=== PATIENT | male | born 1985 | race Caucasian/White ===

== ENCOUNTER 2017-02-13 17:59 | Emergency (ER) | payer OTHER ==
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
--- NOTE | 2017-02-13 18:39 | ED ORDER SUMMARY ---
..... Patient: DARBY WILEY OrderSheet [facility] VisitID: [id number] [place] [address] 31y, M Registration Date/Time: 02/13/2017 ORDER SHEET Weight: 86.1 kg (stated) Allergies: No Known Drug Allergy GENERAL ORDERS: Forearm Left Urgent (18:10 02/13/2017 EKoroleva P.A.-C) (Ack 18:19 Linda) (18:26 RFay) MEDICATION ORDERS: Tdap IM 0.5 mL (NOW, per protocol) (18:10 02/13/2017 EKoroleva P.A.-C) (18:20 LSullivan R.N.) Tylenol PO 650 mg (NOW) (18:10 02/13/2017 EKoroleva P.A.-C) (18:20 LSullivan R.N.) Motrin PO 800 mg (NOW) (18:11 02/13/2017 EKoroleva P.A.-C) (18:20 LSullivan R.N.) Hydrocodone-APAP PO 5/325 mg (NOW, HIGH ALERT MEDICATION) (18:36 02/13/2017 EKoroleva P.A.-C) (18:39 LSullivan R.N.) IV FLUIDS: ORDER SHEET NOTES: [Electronically signed by Belia FarahAReddy-Rey (19:00 02/13/2017)] [Electronically signed by Patti Davis R.N. (19:17 02/13/2017)] [Electronically locked/signed by Patti Davis R.N. (19:17 02/13/2017)]
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
--- NOTE | 2017-02-13 18:39 | ED ORDER SUMMARY ---
..... Patient: DARBY WILEY OrderSheet [facility] VisitID: [id number] [place] [address] 31y, M Registration Date/Time: 02/13/2017 ORDER SHEET Weight: 86.1 kg (stated) Allergies: No Known Drug Allergy GENERAL ORDERS: Forearm Left Urgent (18:10 02/13/2017 EKoroleva P.A.-C) (Ack 18:19 Linda) (18:26 RFay) MEDICATION ORDERS: Tdap IM 0.5 mL (NOW, per protocol) (18:10 02/13/2017 EKoroleva P.A.-C) (18:20 LSullivan R.N.) Tylenol PO 650 mg (NOW) (18:10 02/13/2017 EKoroleva P.A.-C) (18:20 LSullivan R.N.) Motrin PO 800 mg (NOW) (18:11 02/13/2017 EKoroleva P.A.-C) (18:20 LSullivan R.N.) Hydrocodone-APAP PO 5/325 mg (NOW, HIGH ALERT MEDICATION) (18:36 02/13/2017 EKoroleva P.A.-C) (18:39 LSullivan R.N.) IV FLUIDS: ORDER SHEET NOTES: [Electronically signed by Belia FarahAReddy-Rey (19:00 02/13/2017)] [Electronically signed by Patti Davis R.N. (19:17 02/13/2017)] [Electronically locked/signed by Patti Davis R.N. (19:17 02/13/2017)]
--- NOTE | 2017-02-13 18:43 | DIAGNOSTIC IMAGING REPORT ---
PROCEDURE: XR FOREARM - LEFT INDICATION: TRAUMA/INJURY TECHNIQUE: Two views of the the left forearm COMPARISON: None. FINDINGS: Normal mineralization. No fractures. Normal osseous alignment. No suspicious soft-tissue calcification or radiodense foreign bodies. Distal radial sided soft tissue swelling without underlying foreign body. IMPRESSION: 1. Soft tissue injury without underlying fracture or foreign body.
--- NOTE | 2017-02-13 19:18 | ED MAR SUMMARY ---
..... Medication Administration Record [facility] [address] [place] [address] Patient: DARBY WILEY Visit ID: [id number] 31y, M Weight: 86.1 kg Height/Length: 67 in BMI: 29.8 ALLERGIES: No Known Drug Allergy Given 18:15 02/13/2017 Patti Davis RRodriguez Medication Administered: TDAP [IM], Dose: 0.5 mL IM. Medication Ordered: Tdap IM 0.5 mL (NOW, per protocol). Given 18:20 02/13/2017 Patti Davis R.N. Medication Administered: TYLENOL [PO] (ACETAMINOPHEN), Dose: 650 mg PO. Medication Ordered: Tylenol PO 650 mg (NOW). Given 18:20 02/13/2017 Patti Davis R.NReddy Medication Administered: MOTRIN [PO], Dose: 800 mg PO. Medication Ordered: Motrin PO 800 mg (NOW). Given 18:39 02/13/2017 Patti Davis RReddyNReddy Medication Administered: HYDROCODONE-APAP [PO] (HYDROCODONE-ACETAMINOPHEN), Dose: 1 tab 5/325 mg Tablets PO. Medication Ordered: Hydrocodone-APAP PO 5/325 mg (NOW, HIGH ALERT MEDICATION).
--- NOTE | 2017-02-13 19:18 | ED MAR SUMMARY ---
..... Medication Administration Record [facility] [address] [place] [address] Patient: DARBY WILEY Visit ID: [id number] 31y, M Weight: 86.1 kg Height/Length: 67 in BMI: 29.8 ALLERGIES: No Known Drug Allergy Given 18:15 02/13/2017 Patti Davis RRodriguez Medication Administered: TDAP [IM], Dose: 0.5 mL IM. Medication Ordered: Tdap IM 0.5 mL (NOW, per protocol). Given 18:20 02/13/2017 Patti Davis R.N. Medication Administered: TYLENOL [PO] (ACETAMINOPHEN), Dose: 650 mg PO. Medication Ordered: Tylenol PO 650 mg (NOW). Given 18:20 02/13/2017 Patti Davis R.NReddy Medication Administered: MOTRIN [PO], Dose: 800 mg PO. Medication Ordered: Motrin PO 800 mg (NOW). Given 18:39 02/13/2017 Patti Davis RReddyNReddy Medication Administered: HYDROCODONE-APAP [PO] (HYDROCODONE-ACETAMINOPHEN), Dose: 1 tab 5/325 mg Tablets PO. Medication Ordered: Hydrocodone-APAP PO 5/325 mg (NOW, HIGH ALERT MEDICATION).
--- NOTE | 2017-02-13 19:18 | ED MED RECONCILIATION SUMMARY ---
Patient: DARBY WILEY Medication Reconciliation Report [facility] VisitID: [id number] [place] [address] 31y, M Registration Date/Time: 02/13/2017 Weight: 86.1 kg Height/Length: 67 in. BMI: 29.8 ALLERGIES: No Known Drug Allergy The patient's Home Medications are listed below: NONE. The source(s) of the original Home Medication information: Not obtained. The following Medications were given to the patient in the Emergency Department: TDAP [IM] IM 0.5 mL, administered: 02/13/2017 6:15:00 PM Tylenol [PO] PO 650 mg, administered: 02/13/2017 6:20:00 PM Motrin [PO] PO 800 mg, administered: 02/13/2017 6:20:00 PM Hydrocodone-APAP [PO] PO 1 tab, administered: 02/13/2017 6:39:00 PM The following Medications were prescribed to the patient: Take OTC medications according to label instructions. Available over the counter. -- Belia Farah, P.A.-C Acetaminophen (available over the counter): take according to label instructions. -- Belia Farah, P.A.-C Motrin (available over the counter): take according to label instructions. -- Belia Farah, P.A.-C Hydrocodone/APAP 5mg / 325mg: take 1 orally every 6 hours as needed for pain. Dispense ten (10). No refill. -- Belia Farah, P.A.-C
--- NOTE | 2017-02-13 19:18 | ED MED RECONCILIATION SUMMARY ---
Patient: DARBY WILEY Medication Reconciliation Report [facility] VisitID: [id number] [place] [address] 31y, M Registration Date/Time: 02/13/2017 Weight: 86.1 kg Height/Length: 67 in. BMI: 29.8 ALLERGIES: No Known Drug Allergy The patient's Home Medications are listed below: NONE. The source(s) of the original Home Medication information: Not obtained. The following Medications were given to the patient in the Emergency Department: TDAP [IM] IM 0.5 mL, administered: 02/13/2017 6:15:00 PM Tylenol [PO] PO 650 mg, administered: 02/13/2017 6:20:00 PM Motrin [PO] PO 800 mg, administered: 02/13/2017 6:20:00 PM Hydrocodone-APAP [PO] PO 1 tab, administered: 02/13/2017 6:39:00 PM The following Medications were prescribed to the patient: Take OTC medications according to label instructions. Available over the counter. -- Belia Farah, P.A.-C Acetaminophen (available over the counter): take according to label instructions. -- Belia Farah, P.A.-C Motrin (available over the counter): take according to label instructions. -- Belia Farah, P.A.-C Hydrocodone/APAP 5mg / 325mg: take 1 orally every 6 hours as needed for pain. Dispense ten (10). No refill. -- Belia Farah, P.A.-C
--- NOTE | 2017-02-13 19:18 | ED DISCHARGE INSTRUCTIONS ---
Patient: DARBY WILEY General Instructions [facility] VisitID: [id number] [place] [address] 31y, M Registration Date/Time: 02/13/2017 Laceration to the left forearm. Crush injury to the left forearm. INSTRUCTIONS Apply ice. Elevate affected areas above chest level. Protect wound and keep wound area clean. Apply bacitracin twice daily. Sutures should be removed in eight days. Limit use of left hand for 7 days. Do not work for three days. (Address: [place] [address] ). Prescription Medications: Hydrocodone/APAP 5mg / 325mg: take 1 orally every 6 hours as needed for pain. Dispense ten (10). No refill. OTC Medications: Take OTC medications according to label instructions. Available over the counter. Acetaminophen (available over the counter): take according to label instructions. Motrin (available over the counter): take according to label instructions. Follow-up: Follow up with your doctor in eight days for suture removal. ADDITIONAL INFORMATION Laceration, Extremity (Sutures, [place], Or Tape) A laceration is a cut through the skin. This will usually require stitches (sutures) or lilly if it is deep. Minor cuts may be treated with surgical tape closures. Home care The following guidelines will help you care for your laceration at home: Keep the wound clean and dry. If a bandage was applied and it becomes wet or dirty, replace it. Otherwise, leave it in place for the first 24 hours, then change it once a day or as directed. If stitches or lilly were used, clean the wound daily: After removing the bandage, wash the area with soap and water. Use a wet cotton swab to loosen and remove any blood or crust that forms. After cleaning, keep the wound clean and dry. Talk with your doctor before applying any antibiotic ointment to the wound. Reapply the bandage. You may remove the bandage to shower as usual after the first 24 hours, but do not soak the area in water (no swimming) until the stitches or lilly are removed. If surgical tape closures were used, keep the area clean and dry. If it becomes wet, blot it dry with a towel. The doctor may prescribe an antibiotic cream or ointment to prevent infection. Do not stop taking this medication until you have finished the prescribed course or the doctor tells you to stop. The doctor may also prescribe medications for pain. Follow the doctors instructions for taking these medications. If you have chronic liver or kidney disease or ever had a stomach ulcer or GI bleeding, talk with your doctor before using these medicines. Follow-up care Follow up with your health care provider. Most skin wounds heal within ten days. However, an infection may sometimes occur despite proper treatment. Therefore, check the wound daily for the signs of infection listed below. Stitches and lilly should be removed within 714 days. If surgical tape closures were used, you may remove them after 10 days, if they have not fallen off by then. Notify your doctor if you notice persistent numbness or weakness in the injured extremity. (Note:A radiologist will review any X-rays that were taken. We will notify you of any new findings that may affect your care.) When to seek medical care Get prompt medical attention if any of these occur: Increasing pain in the wound Redness, swelling, or pus coming from the wound Fever of 100.4F (38C) or higher, or as directed by your health care provider If stitches or lilly come apart or fall out before your next appointment If the surgical tape closures fall off within seven days, or the wound edges re-open Bleeding not controlled by direct pressure Crush Injury: Hand [No Fx] You have a CRUSH INJURY of your HAND. This causes local pain, swelling and sometimes bruising. There are no broken bones. This injury may take from a few days to a few weeks to heal. If the FINGERNAIL has been severely injured, it may fall off in 1-2 weeks. A new one will usually start to grow back within a month. Home Care: Keep your hand elevated to reduce pain and swelling. When sitting or lying down elevate your arm above the level of your heart. You can do this by placing your arm on a pillow that rests on your chest or on a pillow at your side. This is most important during the first 48 hours after injury. Apply an ice pack (ice cubes in a plastic bag, wrapped in a towel) over the injured area for 20 minutes every 1-2 hours the first day for pain relief. Continue this 3-4 times a day until the pain and swelling goes away. You may use acetaminophen (Tylenol) or ibuprofen (Motrin, Advil) to control pain, unless another pain medicine was prescribed. [ NOTE : If you have chronic liver or kidney disease or ever had a stomach ulcer or GI bleeding, talk with your doctor before using these medicines.] Keep the splint/cast dry at all times. Bathe with your splint/cast well out of the water, protected with a large plastic bag, rubber-banded at the top end. If a fiberglass cast or splint gets wet, you can dry it with a hair-dryer. Follow Up with your doctor as advised if you are not starting to improve within the next THREE days. [NOTE: If X-rays were taken, they will be reviewed by a radiologist. You will be notified of any new findings that may affect your care.] Get Prompt Medical Attention if any of the following occur: The plaster cast or splint becomes wet or soft The fiberglass cast or splint remains wet for more than 24 hours Increased tightness or pain under the cast or splint Fingers become swollen, cold, blue, numb or tingly Redness, warmth, swelling, drainage from the wound, or foul odor from a cast or splint Fever of 100.4F(38C) or higher, or as directed by your healthcare provider Hydrocodone Bitartrate, Acetaminophen Oral tablet What is this medicine? ACETAMINOPHEN; HYDROCODONE (a set a SHANNON shira fen; carmelo droe KOE done) is a pain reliever. It is used to treat mild to moderate pain. How should I use this medicine? Take this medicine by mouth. Swallow it with a full glass of water. Follow the directions on the prescription label. If the medicine upsets your stomach, take the medicine with food or milk. Do not take more than you are told to take. Talk to your oil expert regarding the use of this medicine in children. This medicine is not approved for use in children. What side effects may I notice from receiving this medicine? Side effects that you should report to your doctor or health social worker palliative care as soon as possible: allergic reactions like skin rash, itching or hives, swelling of the face, lips, or tongue breathing problems confusion feeling faint or lightheaded, falls stomach pain yellowing of the eyes or skin Side effects that usually do not require medical attention (report to your doctor or health social worker palliative care if they continue or are bothersome): nausea, vomiting stomach upset What may interact with this medicine? alcohol antihistamines isoniazid medicines for depression, anxiety, or psychotic disturbances medicines for sleep muscle relaxants naltrexone narcotic medicines (opiates) for pain phenobarbital ritonavir tramadol What if I miss a dose? If you miss a dose, take it as soon as you can. If it is almost time for your next dose, take only that dose. Do not take double or extra doses. Where should I keep my medicine? Keep out of the reach of children. This medicine can be abused. Keep your medicine in a safe place to protect it from theft. Do not share this medicine with anyone. Selling or giving away this medicine is dangerous and against the law. Store at room temperature between 15 and 30 degrees C (59 and 86 degrees F). Protect from light. Keep container tightly closed. Throw away any unused medicine after the expiration date. Discard unused medicine and used packaging carefully. Pets and children can be harmed if they find used or lost packages. What should I tell my health care provider before I take this medicine? They need to know if you have any of these conditions: brain tumor Crohn's disease, inflammatory bowel disease, or ulcerative colitis drink more than 3 alcohol-containing drinks per day drug abuse or addiction head injury heart or circulation problems kidney disease or problems going to the bathroom liver disease lung disease, asthma, or breathing problems an unusual or allergic reaction to acetaminophen, hydrocodone, other opioid analgesics, other medicines, foods, dyes, or preservatives or trying to get breast-feeding What should I watch for while using this medicine? Tell your doctor or health social worker palliative care if your pain does not go away, if it gets worse, or if you have new or a different type of pain. You may develop tolerance to the medicine. Tolerance means that you will need a higher dose of the medicine for pain relief. Tolerance is normal and is expected if you take the medicine for a long time. Do not suddenly stop taking your medicine because you may develop a severe reaction. Your body becomes used to the medicine. This does NOT mean you are addicted. Addiction is a behavior related to getting and using a drug for a non-medical reason. If you have pain, you have a medical reason to take pain medicine. Your doctor will tell you how much medicine to take. If your doctor wants you to stop the medicine, the dose will be slowly lowered over time to avoid any side effects. You may get drowsy or dizzy when you first start taking the medicine or change doses. Do not drive, use machinery, or do anything that may be dangerous until you know how the medicine affects you. Stand or sit up slowly. There are different types of narcotic medicines (opiates) for pain. If you take more than one type at the same time, you may have more side effects. Give your health care provider a list of all medicines you use. Your doctor will tell you how much medicine to take. Do not take more medicine than directed. Call emergency for help if you have problems breathing. The medicine will cause constipation. Try to have a bowel movement at least every 2 to 3 days. If you do not have a bowel movement for 3 days, call your doctor or health social worker palliative care. Too much acetaminophen can be very dangerous. Do not take Tylenol (acetaminophen) or medicines that contain acetaminophen with this medicine. Many non-prescription medicines contain acetaminophen. Always read the labels carefully. You have been given the following additional information: Laceration, Extrem (Suture, Staple, Or Tape) Crush Injury, Hand/Finger Hydrocodone Bitartrate, Acetaminophen Oral tablet Limit use of left hand for 7 days. Do not work for three days. (Electronically signed by Belia Farah P.A.-C 02/13/2017 19:00)
== END 2017-02-13 18:50 | disposition home or self-care (01) ==
LOC: ED SRH 17:59
DX: S51.812A Laceration without foreign body of left forearm, initial encounter (principal); S57.82XA Crushing injury of left forearm, initial encounter; W26.8XXA Contact with other sharp object(s), not elsewhere classified, initial encounter; Y93.9 Activity, unspecified; Y92.9 Unspecified place or not applicable; Y99.9 Unspecified external cause status